=== PATIENT | male | born 2005 | race Hispanic/Latino ===

== ENCOUNTER 2024-09-29 07:30 | Emergency (ER) | payer OTHER ==
[~2024-09-29] VITALS: Ht 177.8 cm; Wt 77.1 kg
--- NOTE | 2024-09-29 07:50 | ERN ---
General Chief Complaint: Thumb Injury Pain Stated Complaint: LT THUMB INJURY Time Seen by MD: 07:32 History of Present Illness Initial Comments Otherwise healthy 19-year-old male presents for right thumb injury. Yesterday he was playing basketball and he banged his right thumb on the lateral aspect against the rim. Today it hurts. It increases with movement and palpation. He has full range of motion. Neurovascularly intact. No open wounds. Allergies: Coded Allergies: No Known Drug Allergies (Unverified Allergy, Unknown, 09/29/24) Past Medical History Past Medical History: No Pertinent History Past Surgical History: None ROS Dictation CONSTITUTIONAL: No chills, no fever, no weakness, no diaphoresis, no malaise. HEAD/FACE: No signs of trauma. EENT: No eye pain, no blurred vision, no tearing, no double vision, no ear pain, no ear discharge, no nose pain, no nasal congestion, no throat pain, no throat swelling, no mouth pain. RESPIRATORY: No cough, no orthopnea, no SOB, no stridor, no wheezing. CARDIOVASCULAR: No chest pain, no edema, no palpitations, no syncope. GASTROINTESTINAL/ABDOMINAL: No abdominal pain, no constipation, no diarrhea, no nausea, no vomiting. GENITOURINARY: No abnormal discharge, no dysuria, no frequent urination, no hematuria. No complaints of pain in the genitals. MUSCULOSKELETAL: Right thumb pain INTEGUMENTARY: No change in color, no change in hair/nails, no dryness, no lesion, no lumps, no rash. NEUROLOGICAL/PSYCH: No anxiety, not depressed, no emotional problem, no headache, no numbness, no pre-existing deficit, no history of seizures, no tremors, no weakness. HEMATOLOGIC/LYMPHATIC: Not anemic, no history of blood clots, no apparent bleeding, no bruising, glands not swollen. All Systems Negative, Except as Noted. Physical Exam Physical Exam Dictation VITAL SIGNS: Reviewed. GENERAL APPEARANCE: Alert, oriented x3, no acute distress HEAD AND FACE: Non-traumatic. EYES: PERRL, pink conjunctivas, eyelid no trauma, anterior chamber clear. EARS: Pinnas intact and no signs of trauma or erythema. Ear canals clear and no discharge. TMs no erythema. NOSE: No discharge, no bleeding. OROPHARYNX: Mouth normal, teeth no caries, tongue pink. Pharynx clear, no erythema. Tonsils no exudates, no abscesses noted. Mucous membrane moist. NECK: Supple, non-tender, no thyromegaly, no masses, no JVD, no bruits. BREAST: Deferred. CHEST: No tenderness, no crepitus, no paradoxical movement, no retractions. LUNGS: Clear, well-ventilated, symmetric, no rales, no wheezing, no rhonchi, no stridor, good breath sounds bilaterally. HEART: Regular rate, regular rhythm, no murmur, no gallops. VASCULAR: No peripheral edema. ABDOMEN: Soft, positive bowel sounds, nondistended, no guarding, nontender, no rebound, no masses no hepatomegaly, no splenomegaly, no Gaston's sign, no hernias. RECTAL: Deferred. GENITAL: Deferred. NEUROLOGICAL: Normal speech, gross motor function intact, gross sensory function intact. MUSCULOSKELETAL: Neck nontender, full range of motion, back nontender, full ra nge of motion. EXTREMITIES: Nontender, full range of motion. SKIN: Color pink, dry, no turgor, no rash, no lacerations, no abrasions, no contusions. LYMPHATICS: Deferred. MDM CC: Right thumb injury Historian: Patient Comorbidities: None Limitations by social determinants of health: None Differential diagnosis: Fracture versus soft tissue injury No labs indicated Vital signs are stable Right thumb x-ray independently interpreted by me: No acute fractures Thumb was splinted in the ER We will recommend RICE and NSAID DC ED Course Orders Procedure Category Date Status Time Finger(S) 2+Vws Rt RAD 09/29/24 Resulted 07:42 Vital Signs Date Time Temp Pulse Resp B/P (MAP) Pulse Ox O2 Delivery O2 Flow Rate FiO2 09/29/24 07:32 98.6 76 20 129/77 99 Room Air DX & DISP Disposition: Discharge Departure Impression: Primary Impression: Sprain of right thumb Condition: Stable Additional Instructions: You have a right thumb sprain/strain. The x-ray does not show any fractures or bony abnormalities. Wear a splint or Ramone wrap until the thumb has healed. I recommend icing this thumb for at least 20 minutes 2-3 times per day for the next 3-5 days. You can take 600 mg of ibuprofen up to 4 times a day as needed for pain or discomfort. This medication is [id number]. Please follow up with the primary doctor in five days for re-evaluation. Return to the emergency department sooner if you have any concerns. CHAR OQUENDO DO September 29, 2024 07:50
--- NOTE | 2024-09-29 08:02 | HMCIMG ---
RIGHT THUMB RADIOGRAPHS - 3 VIEWS INDICATION: Pain COMPARISON: None FINDINGS: AP, lateral, and oblique views. No acute fracture or subluxation identified. No radiopaque foreign body noted. IMPRESSION: No evidence for fracture or subluxation.
[2024-09-29 08:36] VITALS: BP 108/59; PULSE 69; RESP 20; TEMP 97.9; O2SAT 97
== END 2024-09-29 08:36 | disposition home or self-care (01) ==
LOC: EDH 07:30
DX: S63.601A Unspecified sprain of right thumb, initial encounter (principal); W21.05XA Struck by basketball, initial encounter; Y93.67 Activity, basketball; Y92.89 Other specified places as the place of occurrence of the external cause; Y99.8 Other external cause status
CPT/HCPCS: 29125; 73140; 99283